=== PATIENT | female | born 1980 | race Caucasian/White ===

== ENCOUNTER 2019-05-28 | Emergency (ER) | payer SELFPAY ==
[~2019-05-28] MED LIST: AMOXICILLIN500 MG PO; NO
--- NOTE | 2019-05-31 09:24 | NUR ---
Notified patient of Covid results (Negative). Advised patient to follow up with PCP or return to ED with urgent needs. Advised pt to continue practicing Covid prevention including social distancing and hand washing.
== END 2019-05-28 11:25 | disposition home or self-care (01) | DRG 153 ==
DX: J06.9 Acute upper respiratory infection, unspecified (principal); Z20.828 Contact with and (suspected) exposure to other viral communicable diseases

== ENCOUNTER 2022-11-07 16:40 | Emergency (ER) | payer BC ==
[2022-11-07] VITALS (8 sets, daily range): BP systolic 108–136; BP diastolic 75–95
[~2022-11-07] VITALS: Ht 172.7 cm; Wt 141.5 kg
[2022-11-07 17:08] LABS: BASO% 0.3 % (0-3); EOS% 0.3 % (0-8); HEMATOCRIT 41.2 % (37.0-47.0); HEMOGLOBIN 13.7 g/dl (12.0-16.0); IMMATURE GRANULOCYTES 0.4 % (0.0-5.0); LYMPH% 24.2 % (15-41); MEAN CORPUSCULAR HGB 29.3 pG CALC (26.0-32.0); MEAN CORPUSCULAR HGB CONC 33.3 g/dL CAL (32.0-36.0); NEUT# 7.16 thou/uL (2.00-7.15); NEUT% 68.8 % (42-76); RED BLOOD COUNT 4.68 mill/uL (4.20-5.60); RED CELL DISTRI WIDTH 13.4 % (11.5-15.5)
[2022-11-07 17:20] LABS: ALBUMIN 4.2 g/dL (3.2-5.0); ALKALINE PHOSPHATASE 59 u/l (38-126); ANION GAP 13 (6-22 (CALC)); BUN 14 mg/dL (7-17); BUN/CREATININE RATIO 15 (12-20 (CALC)); CARBON DIOXIDE 23 mmol/l (22-30); CHLORIDE 106 mmol/l (95-108); GFR FOR AFR.AMER. > 60 ML/MIN (>=60 (CALC)); GFR OTHER RACES > 60 ML/MIN (>=60 (CALC)); SGOT/AST 49 u/l (14-36); SODIUM 138 mmol/l (137-146); TOTAL PROTEIN 7.7 g/dL (6.3-8.2)
[2022-11-07 17:51] LABS: INTERNATIONAL NORMALIZED RATIO 1.1 RATIO (0.7-1.3); PROTHROMBIN TIME 10.6 SECONDS (9.0-12.5)
[2022-11-07 17:55] LABS: TSH, 3RD GENERATION 1.42 uIU/mL (0.47 - 4.68)
== END 2022-11-07 20:15 | disposition short-term general hospital (02) | DRG 176 ==
LOC: ED 16:40
PROVIDERS: Family Medicine
DX: I26.92 Saddle embolus of pulmonary artery without acute cor pulmonale (principal); E66.01 Morbid (severe) obesity due to excess calories; Z20.822 Contact with and (suspected) exposure to COVID-19
CPT/HCPCS: J1644